=== PATIENT | female | born 1995 | race Caucasian/White ===

== ENCOUNTER 2023-10-16 21:50 | Emergency (ER) | payer MEDICAID, OTHER ==
[2023-10-16] MEDS ORDERED: cefTRIAXone 1 GM Vial IM ONE (22:30)
[2023-10-16] MEDS ORDERED: Lidocaine 1% 5 ML VIAL INJECT ONE (22:38)
== END 2023-10-16 23:13 | disposition home or self-care (01) ==
LOC: JP.ED 21:50
DX: H66.92 Otitis media, unspecified, left ear (principal); H60.92 Unspecified otitis externa, left ear
CPT/HCPCS: 96372; 99282; J0696